=== PATIENT | male | born 1975 | race Caucasian/White ===

== ENCOUNTER 2016-09-05 05:48 | Emergency (ER) | payer SELFPAY ==
[~2016-09-05] VITALS: Ht 175.3 cm; Wt 78.0 kg
[2016-09-05] MEDS ORDERED: KETOROLAC 60MG/2ML VIAL IM ONE (07:30)
[2016-09-05 07:34] VITALS: BP 111/80
== END 2016-09-05 08:32 | disposition left against medical advice (07) ==
LOC: ER 07:18
DX: M25.522 Pain in left elbow (principal); M25.512 Pain in left shoulder; J45.909 Unspecified asthma, uncomplicated; E11.9 Type 2 diabetes mellitus without complications; F17.210 Nicotine dependence, cigarettes, uncomplicated
CPT/HCPCS: 96372; 99283